=== PATIENT | female | born 1980 | race Caucasian/White ===

== ENCOUNTER 2017-10-05 15:54 | Emergency (ER) | payer OTHER ==
[2017-10-05 16:04] VITALS: BP 104/79; PULSE 80; RESP 18; TEMP 98.2; O2SAT 100
--- NOTE | 2017-10-05 16:41 | EDPHY ---
H & P Time Seen by Provider: 10/05/17 16:14 HPI/ROS: CHIEF COMPLAINT: Back pain HISTORY OF PRESENT ILLNESS: 37-year-old female presents to the emergency department with pain in her left low back and left leg. The patient states 2 weeks ago she fell off of the counter and hit the left lateral aspect of her hip and thigh area on the knob of a cabinet. She did not hit her head or lose consciousness. She states since that time she has had pain in her left low back and now left thigh area. She has seen a naturopathic doctor as well as chiropractor. She has not seen a primary care provider for this. She has taken occasional Aleve for the pain. She denies bowel or bladder incontinence. Denies paresthesias in her upper or lower extremities. Denies feelings of weakness in her lower legs. Denies head injury. Denies any other trauma or complaints. REVIEW OF SYSTEMS: Constitutional: No fever, no chills. Eyes: No double or blurry vision. ENT: No sore throat. Respiratory: No cough, no shortness of breath. Cardiac: No chest pain. Gastrointestinal: No abdominal pain, vomiting or diarrhea. Genitourinary: No dysuria. Musculoskeletal: Back pain. Skin: No rashes. Neurological: No headache. Past Medical/Surgical History: , oophorectomy Social History: Smoking Status: Former smoker Physical Exam: General Appearance: Alert, no distress. Vital signs are stable. Eyes: Pupils equal and round. Extraocular motions are all intact. ENT: Mouth: Mucous membranes moist. Respiratory: No wheezing, rhonchi, or rales, lungs are clear to auscultation. Cardiovascular: Regular rate and rhythm. Gastrointestinal: Abdomen is soft and nontender, no masses, no rebound or guarding, bowel sounds normal. Neurological: Alert and oriented x 3, cranial nerves II through XII grossly intact Skin: Warm and dry, no rashes. Resolving area of ecchymosis to the left, proximal lateral aspect of her thigh. Musculoskeletal: Nontender to palpate along the cervical, thoracic or lumbar spine. Neck is supple. Extremities: Full range of motion and no peripheral edema. Straight leg raise is negative bilaterally. Reflexes are 2+ and equal for lower extremities bilaterally. She does have some slight weakness in her left foot with dorsiflexion compared to the right. She however has normal strength in her great toe bilaterally. She has normal sensation to light touch with normal 2 point discrimination. Strong dorsalis pedis pulse on the dorsal aspect of both feet. Normal gait. She is able to do heel-to-toe walking. She has pain with laterally bending and twisting to the left and right. Psychiatric: Patient is oriented X 3, there is no agitation. Constitutional: Initial Vital Signs Temperature (C) 36.8 C 10/05/17 15:58 Heart Rate 80 10/05/17 15:58 Respiratory Rate 18 10/05/17 15:58 Blood Pressure 104/79 10/05/17 15:58 O2 Sat (%) 100 10/05/17 15:58 O2 Delivery Mode Room Air Allergies/Adverse Reactions: No Known Allergies Allergy (Verified 10/05/17 15:58) Home Medications: Medication Instructions Recorded Cyclobenzaprine [Flexeril] 10 mg PO TIDPRN PRN #12 tab 10/05/17 methylPREDNISolone [Medrol Dose 1 each PO AD #0 ea 10/05/17 Luke] Medical Decision Making ED Course/Re-evaluation: The case was discussed with Dr. Stuart De Luna, secondary supervising physician, who did not directly evaluate the patient but agrees with treatment and plan. Patient has no pain with palpation along her cervical, thoracic or lumbar spine. I do not think imaging studies are indicated. I did discuss the case with the on-call neurosurgeon, Dr. Osborne, given her slight weakness in dorsiflexion on the left side. He thought that her symptoms likely represented a perennial nerve injury. He recommended Medrol Dosepak and recommended that she follow up with her primary care provider for possible EMG and then she could follow up with neurosurgeon as an outpatient. Patient was instructed to return to the emergency department if she had any change in symptoms or if she felt worse in any way. She was comfortable with this plan. Differential Diagnosis: Back pain including but not limited to muscular pain, herniated disc, spine fracture, intra-abdominal causes and urinary tract infection. Departure - Departure Disposition: Home, Routine, Self-Care Clinical Impression: Back pain Qualifiers: Back pain location: low back pain Chronicity: acute Back pain laterality: left Sciatica presence: with sciatica Sciatica laterality: sciatica of left side Qualified Code(s): M54.42 - Lumbago with sciatica, left side Contusion of left hip Qualifiers: Encounter type: initial encounter Qualified Code(s): S70.02XA - Contusion of left hip, initial encounter Condition: Good Instructions: Methylprednisolone (By mouth), Contusion in Adults (ED), Back Pain (ED) Additional Instructions: Medrol dose pack as directed for one week. Follow up with neurosurgeon next week if symptoms do not improve. Dr. Osborne, who will be spoke with, recommended that you may require EMG if symptoms do not improve. Referrals: Tano Osborne MD [Medical Doctor] - 5-7 days, call for appt. (Neurosurgeon on- call) Prescriptions: Cyclobenzaprine [Flexeril] 10 mg PO TIDPRN PRN #12 tab PRN Reason: prn spasms methylPREDNISolone [Medrol Dose Luke] 1 each PO AD #0 ea
== END 2017-10-05 16:51 | disposition home or self-care (01) ==
DX: S70.02XA Contusion of left hip, initial encounter (principal); M54.42 Lumbago with sciatica, left side; Z87.891 Personal history of nicotine dependence; W01.198A Fall on same level from slipping, tripping and stumbling with subsequent striking against other object, initial encounter